=== PATIENT | female | born 1995 | race Caucasian/White ===

== ENCOUNTER 2022-11-02 22:58 | Observation (INO) | payer OTHER, SELFPAY ==
--- NOTE | ~2022-11-02 | US_ITS ---
US OB <=14 wk fetus w TV DATE: 11/03/2022 04:17 INDICATION: Rule out ectopic TECHNIQUE: Real-time imaging via transabdominal and transvaginal approaches COMPARISON: None FINDINGS: The uterus measures approximately 9 cm height, 5.7 cm AP and 7.6 cm transverse dimension. The central endometrial echo measures up to 13 mm approximate anteroposterior dimension. No intrauter ine gestational sac is detected. Complex mass is noted in the right adnexal area, including an approximately 9 x 11 mm cystic lesion w ith approximately 5 mm thick wall, with some internal soft tissue echoes which may represent clot. Th is may be consistent with a ruptured corpus luteum cyst with associated right adnexal hematoma. Diffe rential diagnosis includes ruptured ectopic gestation. There is suggestion of a fluid containing tubu lar structure in the right adnexal area which may be consistent with hydrosalpinx or ruptured tubal e ctopic. Clinical correlation including serum beta hCG levels is recommended. The left ovary measures approximately 3 x 2.2 x 2.3 cm with up to approximately 9 x 5 mm cysts. IMPRESSION: Complex mass in right adnexal area; differential diagnosis includes ruptured ectopic vers us ruptured hemorrhagic corpus luteum cyst. Reviewed, dictated and finalized at [facility]. Reviewed, dictated and finalized at [facility]. IMPRESSION: Complex mass in right adnexal area; differential diagnosis includes ruptured ectopic versus ruptured hemorrhagic corpus luteum cyst.
[2022-11-02 23:07] VITALS: BP 133/79; PULSE 86; RESP 14; TEMP 36.5; O2SAT 100
--- NOTE | 2022-11-02 23:12 | PC.NURSE ---
Pt refused blood draw in triage. Pt states i need to lay down, i will pass out if you take my blood .
[2022-11-03] VITALS (8 sets, daily range): BP systolic 97–123; BP diastolic 50–74; PULSE 75–98; RESP 14–18; TEMP 36.2–37.1; O2SAT 94–100; BMI 17.4
[2022-11-03] MEDS: LACTATED RINGERS 1,000 ML 999 ML IV CONT (02:12)
[2022-11-03 02:21] LABS: Basophils Absolute Auto 0.1 K/mm3 (0.0-0.1); Basophils Percent Auto 0.5 % (0.2-1.2); Eosinophils Percent Auto 0.1 % (0-4.4); Hematocrit 39.7 % (37.0-47.0); Hemoglobin 13.5 g/dL (12.0-15.0); Immature Granulocyte Absolute 0.08 K/mm3 (0.00-0.031); Immature Granulocyte Percent A 0.5 % (0-0.5); Lymphocytes Absolute Auto 0.72 K/mm3 (0.9-3.2); Lymphocytes Percent Auto 4.1 % (18.3-44.2); Mean Corpuscular Hemoglobin 28.2 pg (26-34); Mean Corpuscular Volume 82.9 fl (80-100); Mean Platelet Volume 9.9 fl (7.4-10.4); Monocytes Absolute Auto 0.5 K/mm3 (0.1-0.6); Neutrophils Absolute Auto 16.1 K/mm3 (1.3-6.7); Neutrophils Percent Auto 91.8 % (45.5-73.1); Platelet Count Result 206 k/mm3 (150-375); Red Blood Count 4.79 M/mm3 (4.2-5.4); Red Cell Distribution Width 12.2 % (11.5-14.5); White Blood Count 17.5 K/mm3 (4.5-10.0)
[2022-11-03 02:36] LABS: INR 1.1; Prothrombin Time 15.1 Seconds (11.1-14.7)
[2022-11-03 02:37] LABS: Partial Thromboplastin Time 27.9 SECONDS (22.3-36.8)
[2022-11-03 02:41] LABS: Anion Gap 6 mmol/L (8-16); Blood Urea Nitrogen 8 mg/dL (7-17); Calcium 8.7 mg/dL (8.4-10.2); Carbon Dioxide 27 mmol/L (22-30); Chloride 103 mmol/L (98-107); Estimated CRCL calculation 110 ml/min; Estimated Glomerular Filt Rate > 60; Glucose 126 mg/dL (65-110); Potassium 3.8 mmol/L (3.4-5.0); Sodium 136 mmol/L (137-145)
--- NOTE | 2022-11-03 02:59 | ED.FEMALEGU ---
HPI - Female Genitourinary General Chief complaint: Vaginal Bleeding <Lexis Oliveira MD - Last Filed: 11/03/22 07:19> Stated complaint: 2 months -cramping and bleeding <Lexis Oliveira MD - Last Filed: 11/03/22 07:19> Time Seen by Provider: 11/03/22 01:45 <Lexis Oliveira MD - Last Filed: 11/03/22 07:19> History of Present Illness HPI Narrative: Patient at 8-10wk presents with pelvic cramping and bleeding with passage of clots that started today. Since arrival here had passed more and now her symptoms have largely resolved. She is unsure if any tissue passed due to her being quite distraught/in pain. <Lexis Oliveira MD - Last Filed: 11/03/22 07:19> Related Data Allergies/Adverse reactions: Allergies Allergy/AdvReac Type Severity Reaction Status Date / Time Opioids - Morphine Analogues Allergy Vomiting Verified 11/03/22 02:01 ondansetron [From Zofran] AdvReac Vomiting Verified 11/03/22 02:00 <Lexis Oliveira MD - Last Filed: 11/03/22 07:19> Review of Systems Review of Systems: CONST: No fever. HEENT: No sore throat C/V: No chest pain RESP: No cough GI: Reports abdominal pain, nausea : Vaginal bleeding. M/S: No joint pain. SKIN: No rash. NEURO: [No headache or focal numbness or weakness] PSYCH: [No depression] <Lexis Oliveira MD - Last Filed: 11/03/22 07:19> Exam Narrative: EXAMINATION OF ORGAN SYSTEMS/BODY AREAS: Constitutional: Vital signs per nursing GENERAL:[No acute distress, non-toxic appearing.] HEAD: Normal with no signs of head trauma. EYES: EOMI, conjunctiva normal ENT: Hearing grossly intact LUNGS: Nonlabored breathing. HEART: [Regular rate and rhythm] ABD: [Soft], [nontender to palpation] w/ dining room manager in room: Scant vaginal bleeding in vault; no severe adnexal or CMT EXT: Normal range of motion SKIN: [No rashes or lesions.] NEURO: [Alert and oriented x 3. No gross focal sensory or strength deficits.] PSYCH: Normal affect <Lexis Oliveira MD - Last Filed: 11/03/22 07:19> Course Course Emergency Course: Patient resting comfortably. Repeat exam shows a soft nontender abdomen. Patient educated on lab results as well as imaging results. Concern for possible ectopic . Patient does give history of having an ultrasound that may have showed an early in [place] couple weeks ago. It was at a free clinic recommended by her district adviser. This is patient's first . Discussed the case with Dr. Whittaker with OB. Recommends admission with observation. Patient be kept n.p.o. until she can be seen by Dr. Whittaker. <Jt Mccauley MD - Last Filed: 11/03/22 09:15> Vital Signs Vital signs: Vital Signs Temperature 97.7 F 11/02/22 23:07 Pulse Rate 86 11/02/22 23:07 Respiratory Rate 14 11/02/22 23:07 Blood Pressure 133/79 11/02/22 23:07 Pulse Oximetry 100 11/02/22 23:07 Oxygen Delivery Room Air 11/02/22 23:07 Temperature 98.8 F 11/03/22 04:31 Pulse Rate 95 11/03/22 04:31 Respiratory Rate 17 11/03/22 04:31 Blood Pressure 114/69 11/03/22 04:31 Pulse Oximetry 98 11/03/22 05:45 Oxygen Delivery Room Air 11/02/22 23:07 <Lexis Oliveira MD - Last Filed: 11/03/22 07:19> Vital Signs Temperature 97.7 F 11/02/22 23:07 Pulse Rate 86 11/02/22 23:07 Respiratory Rate 14 11/02/22 23:07 Blood Pressure 133/79 11/02/22 23:07 Pulse Oximetry 100 11/02/22 23:07 Oxygen Delivery Room Air 11/02/22 23:07 Temperature 98.8 F 11/03/22 04:31 Pulse Rate 95 11/03/22 04:31 Respiratory Rate 17 11/03/22 04:31 Blood Pressure 114/69 11/03/22 04:31 Pulse Oximetry 98 11/03/22 05:45 Oxygen Delivery Room Air 11/02/22 23:07 <Jt Mccauley MD - Last Filed: 11/03/22 09:15> MDM - Female Genitourinary MDM Narrative Medical decision making narrative: 27-year-old female presenting with vaginal bleeding and pelvic pain at 8 to 10 weeks , she is now res
[2022-11-03 03:06] LABS: Appearance Urine Clear (Clear); Bacteria Urine None Seen /hpf; Bilirubin Urine Negative (Negative); Blood Urine 3+ (Negative); Color Urine Yellow (Yellow); Glucose Urine UA Negative (Negative); Ketones Urine 1+ mg/dL (Negative); Leukocyte Esterase Ur Trace LEU/UL (Negative); Nitrate Urine Negative (Negative); Non Pathogenic Casts 0-2; Protein Urine Negative (Negative); RBC Urine >100 /hpf (0-2); Specific Grav Ur 1.012 (1.001-1.035); Squamous Epithelial Cell Urine None seen /hpf (Few); Urobilinogen Urine 0.2 mg/dL (<2.0); WBC Urine 0-5 /hpf; pH Urine 6.5 (5.0-9.0)
[2022-11-03 03:17] LABS: Add Urine Microscopic? YES
[2022-11-03] MEDS: RHO(D) IMMUNE GLOBULIN 300 MCG/2 ML SYRINGE IM (04:30)
--- NOTE | 2022-11-03 04:35 | PC.NURSE ---
IM injection of Rhogam was given in left thigh.
[2022-11-03] MEDS: SODIUM CHLORIDE 0.9% IV 1,000 ML 125 ML IV CONT ×2 (09:39→18:27)
--- NOTE | 2022-11-03 10:39 | ADMGEN ---
This patient, Wendy Benton, was admitted to [facility] Surg Room 3216. Patient/family oriented to hospital policies and general routines including ID bracelet, bed and alarms, visiting hours, pain management, procedures, bathroom and other care routines, personal items, smoking policy, room service/diet, and visiting hours. Information on how to activate the Rapid Response Team has been discussed. Patient/Family are encouraged to report perceived risks to care and to ask questions if they do not understand what they are told or what they should do.
--- NOTE | 2022-11-03 15:24 | PM.IMHP ---
H&P: HPI History of Present Illness Date/Time: 11/03/22 15:24 Chief Complaint: Pelvic pain Narrative: 27-year-old 1 who presented to the emergency department with pelvic pain. She was evaluated there. She is said to have previously Have a gestational sac. This cannot be confirmed with medical documentation. Was done a commercial ultrasound service. In the previous 2 days she had Painful cramping and passed clots. there was some resolution to the discomfort and bleeding. Short time later she began having the pain on the left side of her pelvis , becoming more intense. She reported the emergency department. Ultrasound in the emergency department evaluation showed a right-sided hemorrhagic mass on the ovary and tube. There was an empty intrauterine cavity, possibly thickened but no gestational sac. Review of Systems Review of Systems: All systems reviewed & are unremarkable except as noted in HPI and below Constitutional: Constitutional: Denies chills, Denies fatigue, Denies fever(s) and Denies weakness Eyes: Eyes: Denies blurry vision, Denies change in vision, Denies loss of peripheral vision, Denies loss of vision, Denies other visual disturbances and Denies eye pain ENT: Denies vertigo, Denies dizziness, Denies hearing loss, Denies mouth pain, Denies nasal obstruction, Denies neck mass and Denies neck pain Cardiovascular: Cardiovascular: Denies chest pain, Denies diaphoresis, Denies syncope, Denies leg edema and Denies dyspnea Respiratory: Respiratory: Denies chest congestion, Denies cough, Denies hemoptysis, Denies dyspnea and Denies wheezing Gastrointestinal: Gastrointestinal: Denies abdominal pain, Denies constipation, Denies diarrhea, Denies nausea and Denies vomiting Genitourinary: Genitourinary: Denies hematuria, Denies change in libido, Denies nocturia, Denies genital lesions, Denies flank pain and Denies urinary urgency Musculoskeletal: Musculoskeletal: Denies abnormal gait, Denies back pain, Denies myalgias, Denies arthralgias, Denies joint swelling, Denies muscle weakness and Denies neck pain Integumentary/Breasts: Skin/Breast: Denies swelling, Denies breast pain, Denies breast mass, Denies dry skin, Denies nipple discharge, Denies unusual bruising and Denies jaundice Neurologic: Denies Neuro-related abnormal movements, Denies Abnormal speech present, Denies abnormal gait, Denies behavioral changes, Denies confusion, Denies vertigo, Denies dizziness, Denies syncope, Denies loss of vision, Denies memory loss, Denies convulsions and Denies weakness Psychiatric: Psychiatric: Denies abnormal sleep pattern, Denies behavioral changes, Denies change in libido, Denies confusion, Denies depression, Denies anhedonia and Denies memory loss Endocrine: Endocrine: Reports no additional endocrine complaints, Denies change in libido and Denies fatigue Hematologic/Lymphatic: Hematologic/Lymphatic: Reports no additional hematologic/lymphatic complaints Allergic/Immunologic: Allergic/Immunologic: Reports no additional allergic/immunologic complaints and Denies wheezing PMFSH Social History Social History Smoking status: Never smoker Alcohol intake: never Substance use: never Lack of Transportation: No Lack of Food: Never True Current Housing: I Have Housing Concerned About Future Housing: No Difficulty Paying Gas/Electric Bills: No Difficulty Paying for Meds: No Currently Unemployed: No Education: Bachelor's Degree Difficulty w/ Childcare or Family Care: No Spiritual care concerns: No Meds Home Medications and Allergies Allergies Allergy/AdvReac Type Severity Reaction Status Date / Time Opioids - Morphine Analogues Allergy Vomiting Verified 11/03/22 02:01 ondansetron [From Zofran] AdvReac Vomiting Verified 11/03/22 02:00 Vital Signs Vital Signs - 24 hr 11/02/22 23:07 11/03/22 00:47 11/03/22 04:31 Temperature 97.7 F 98.8 F Puls
[2022-11-04] MEDS: SODIUM CHLORIDE 0.9% IV 1,000 ML 125 ML IV CONT (02:45)
[2022-11-04 06:00] VITALS: BP 110/65; PULSE 69; RESP 14; TEMP 36.2; O2SAT 99
[2022-11-04 08:00] VITALS: PULSE 69; RESP 14; O2SAT 99
--- NOTE | 2022-11-04 08:13 | PM.GYNPNOP ---
FIGURE MODEL - A/P Assessment and plan (1) Adnexal mass: Code(s): N94.89 - Other specified conditions associated with female genital organs and menstrual cycle Status: Acute Plan no complaints, no problems, no pain, rapidly declining quantitative HCG, likely, certainly spontaneous A/B with hemorrhagic cyst on the right side. To discharge today, follow up in 4 days, repeat HCG on Friday morning Time Spent With Patient Time: Total time spent is greater than 50% in coordination of care (as documented) at patient's floor/unit and/or counseling patient: Time with patient: less than 15 minutes FIGURE MODEL- PN:Subj Post-Op Subjective Date/time seen: 11/04/22 08:13 Interval history: No pain, no nausea, vomiting, fever, chills. No chest pain, no shortness of breath. Ambulating, tolerating p.o., Exam Const: General: cooperative, healthy appearing, comfortable and no acute distress Orientation/consciousness: oriented to person, oriented to place and oriented to time HENMT: Head: normal to inspection Ears: external ears normal Face/Nose/Sinus: Normal external nose present and normal facial exam Face and sinus: normal facial exam Eyes: General: appearance normal, both eyes and all related structures Neck: Neck: normal visual inspection, trachea midline and supple Resp: Auscultation: clear to auscultation bilaterally, no crackles, no rales, no rhonchi and no wheezes Cardio: Rate: regular rate Rhythm: regular rhythm Heart sounds: no click, no murmurs and no rubs GI: GI Palp: No abdominal tenderness, No Soft to palpation, No Tenderness to palpation present (GI) and No Palpable mass present Auscultation: normal bowel sounds Skin: General skin exam: normal color and no rashes or lesions noted Neuro: General: oriented to person, oriented to place and oriented to time Extrem: General: normal to inspection, no joint enlargement, no clubbing, cyanosis or edema, no pedal edema and no calf tenderness Psych: Appearance: grossly normal Mental Status: mental status grossly normal Speech and movement: Normal speech and movement present FIGURE MODEL - PN: Obj Data Vital Signs Vital Signs: Vital Signs - 24 hr 11/03/22 09:36 11/03/22 09:37 11/03/22 10:46 Temperature 98.8 F 97.1 F L Pulse Rate 98 81 Respiratory Rate 16 18 Blood Pressure 121/66 114/71 Pulse Oximetry 100 100 100 Oxygen Delivery 11/03/22 10:52 11/03/22 14:00 11/03/22 21:19 Temperature 98.6 F 97.3 F L Pulse Rate 75 86 Respiratory Rate 16 14 Blood Pressure 111/70 123/74 Pulse Oximetry 100 94 Oxygen Delivery Room Air 11/03/22 20:00 11/04/22 06:00 Temperature 97.1 F L Pulse Rate 69 Respiratory Rate 14 Blood Pressure 110/65 Pulse Oximetry 99 Oxygen Delivery Room Air Intake/Output Intake/Output: Intake & Output 11/01/22 11/02/22 11/03/22 11/04/22 23:59 23:59 23:59 23:59 Intake Total 2482 1000 Balance 2482 1000 Meds/Results Medications: Active Medications Generic Name Dose Route Start Last Admin Trade Name Freq PRN Reason Stop Dose Admin Fentanyl Citrate 50 mcg 11/03/22 09:15 Fentanyl Citrate Inj (*Crx) 100 Mcg/2 Ml Vial IV PUSH Q2H PRN Pain Rated 7-10 Fentanyl Citrate 50 mcg 11/03/22 11:27 Fentanyl Citrate Inj (*Crx) 100 Mcg/2 Ml Vial IV PUSH Q4H PRN Pain Rated 4-6 Sodium Chloride 1,000 mls @ 125 mls/hr 11/03/22 09:15 11/04/22 02:45 Normal Saline Iv IV CONT 125 mls/hr .Q8H CATRINA Administration Promethazine HCl 12.5 mg 11/03/22 09:15 Promethazine Hcl 25 Mg/Ml Ampul IV PUSH Q6H PRN Nausea Radiology Results: ITS Impressions Obstetrics Ultrasound 11/03/22 08:30 IMPRESSION: Complex mass in right adnexal area; differential diagnosis includes ruptured ectopic versus ruptured hemorrhagic corpus luteum cyst. Labs 11/03/22 02:10 11/03/22 02:10 Labs: Laboratory Results - last 24 hr 11/03/22 11/03/22 11/04/22 11:
--- NOTE | 2022-11-04 08:24 | PM.DS ---
DS: Admitting Diagnosis Discharge Date November 04, 2022 Admitting Diagnosis pelvic mass DS: Discharge Diagnosis Discharge Diagnosis (1) Adnexal mass: Code(s): N94.89 - Other specified conditions associated with female genital organs and menstrual cycle Status: Acute DS: Summary Hospital Course Reason for hospitalization: rule out ectopic Hospital Course: 27-year-old female who was admitted for observation for pelvic pain, , possible ectopic . After period of observation and serial HCGs was deemed that she had a miscarriage. She has a hemorrhagic cyst of the right ovary that has associated surrounding bleeding and blood clot. She will be discharged today. She will follow-up in 4 days. Time Spent with Patient Time attestation: Total time spent providing and/or coordinating discharge services: DS: Data Data Completed and Pending Labs on day of discharge: Labs from last 24 hours 11/04/22 11/03/22 11/03/22 06:53 16:58 11:19 Tumor Marker HCG Cancelled Beta HCG, Quant 749.61 1380.40 Discharge Plan Discharge Consulting providers: Ki Chou Discharging Clinician: Rigoberto Whittaker Patient Disposition: Home, Self-Care Activity: pelvic rest Diet: regular Patient Instructions: Antibiotic Form Stand Alone Forms: General Discharge Information Follow-up/Referrals: Rigoberto Whittaker MD [Physician] - 11/08/22 Discharge Medications: No Action No Home Medications Other Ambulatory Orders: Beta HCG Quantitative (Routine) Timeframe: 20221108 Location: Determined by Patient Ordered By: Rigoberto Whittaker Date of admission: 11/03/22 09:15 Primary Care Provider: PHYSICIAN,DIRECTOR OF EDUCATION AND TRAINING Admitting Provider: Hayden Saavedra Attending physician on admission: Rigoberto Whittaker Condition: Stable
[2022-11-04 09:05] VITALS: O2SAT 99
== END 2022-11-04 09:00 | disposition home or self-care (01) ==
LOC: ANHED 11-03 09:17 → ANH3MEDSUR 11-03 10:04
PROVIDERS: Emergency Medicine; Admitting Provider Obstetrics & Gynecology; Emergency Provider Emergency Medicine; Visit Provider Obstetrics & Gynecology
DX: N94.89 Other specified conditions associated with female genital organs and menstrual cycle (principal); O03.9 Complete or unspecified spontaneous abortion without complication
CPT/HCPCS: 36415; 76801; 76817; 80048; 81001; 81025; 84702; 85025; 85461; 85610; 85730; 86850; 86900; 86901; 90384; 96360; 96361; 96372; 99285; G0378; J2790; J7030; J7120

== ENCOUNTER 2022-11-08 07:15 | Outpatient (CLI) | payer OTHER, SELFPAY ==
[2022-11-08 08:44] LABS: Beta HCG Quantitative 113.37 mIU/ML
--- NOTE | 2022-11-08 16:19 | WPDHPUPDATE1 ---
History and Physical Update Update Date/Time: 11/08/22 16:19 History and Physical has been reviewed, including an updated exam of the patient. There are NO changes in the patient's condition. Risks, benefits, and alternatives have been discussed and questions answered. Patient agrees to proceed with procedure.
== END 2022-11-08 07:16 | disposition home or self-care (01) ==
PROVIDERS: Visit Provider Obstetrics & Gynecology
DX: O00.90 Unspecified ectopic pregnancy without intrauterine pregnancy (principal); Z3A.00 Weeks of gestation of pregnancy not specified
CPT/HCPCS: 36415; 84702